=== PATIENT | male | born 1940 | race Caucasian/White ===

== ENCOUNTER 2017-07-11 14:55 | Emergency (ER) | payer MEDICARE, BC ==
[~2017-07-11] VITALS: Ht 182.9 cm; Wt 127.7 kg
[2017-07-11 15:29] VITALS: BP 135/74; PULSE 58; RESP 16; TEMP 97.6; O2SAT 97
[2017-07-11 15:50] VITALS: O2SAT 97
[2017-07-11] MEDS ORDERED: ACETAMINOPHEN 325 MG TAB PO ONE (16:00)
[2017-07-11] MEDS ORDERED: SODIUM CHLORIDE 0.9% FLUSH 10 ML FLUSH IVF PRN (16:00)
--- NOTE | 2017-07-11 16:33 | RADRPT ---
EXAM DATE/TIME: 07/11/2017 16:17 [place] COMPARISON: No previous studies available for comparison. INDICATIONS : Elevated blood pressure, slight headache, takes aspirin. RADIATION DOSE: 63.45 CTDIvol (mGy) MEDICAL HISTORY : Cardiovascular disease. Hypertension. SURGICAL HISTORY : None. ENCOUNTER: Initial ACUITY: 1 day PAIN SCALE: 2/10 LOCATION: Bilateral cranial TECHNIQUE: Multiple contiguous axial images were obtained of the head. Using automated exposure control and adj ustment of the mA and/or kV according to patient size, radiation dose was kept as low as reasonably a chievable to obtain optimal diagnostic quality images. DICOM format image data is available electro nically for review and comparison. FINDINGS: There is no evidence of intracranial average or acute infarct. No masses are seen. Minimal periventri cular white matter disease with small lacunar infarcts in the basal ganglia bilaterally. There are no fractures. CONCLUSION: No acute disease. Jordan Hartmann MD on July 11, 2017 at 16:30 Board Certified Radiologist. This report was verified electronically.
--- NOTE | 2017-07-11 17:08 | PD ---
HPI Chief Complaint: Hypertension Time Seen by Provider: 15:47 Travel History International Travel<30 days: No Contact w/Intl Traveler<30days: No Traveled to known affect area: No History of Present Illness HPI 77-year-old male arrives to the ER due to hypertension and headache. The patient has had a headache for about 2-3 days. It is very mild in his estimation located overlying the right eye. He does not typically have headaches. It started gradually upon waking a few days ago. He reports using a medication called Uloric for kidney disease due to elevated uric acid and was advised by his railway track plant operator to call if the blood pressure increases. Patient went to [facility] today and the blood pressure was 195/85. PFSH Past Medical History Hx Anticoagulant Therapy: Yes (asa 325mg) Cardiovascular Problems: Yes (htn on meds) Diminished Hearing: No Tetanus Vaccination: Unknown Influenza Vaccination: Yes Social History Alcohol Use: No Tobacco Use: No Substance Use: No Allergies-Medications (Allergen,Severity, Reaction): Coded Allergies: Penicillins (Verified Allergy, Intermediate, rash, 07/11/17) clindamycin (Verified Allergy, Intermediate, rash, 07/11/17) Reported Meds & Prescriptions Reported Meds & Active Scripts Active Reported Uloric (Febuxostat) 40 Mg Tab Vitamin D2 (Ergocalciferol) 2,000 Unit Tab 50,000 Units PO EVERY 14 DAYS Vitamin B-12 (Cyanocobalamin) 1,000 Mcg Tab 1,000 Mcg PO DAILY Aspirin 325 Mg Tab 325 Mg PO DAILY Bumetanide 1 Mg Tab 1 Mg PO DAILY Levothyroxine (Levothyroxine Sodium) 150 Mcg Tab 150 Mcg PO DAILY Metoprolol Tartrate 50 Mg Tab 50 Mg PO DAILY Allopurinol 100 Mg Tab 100 Mg PO DAILY Losartan (Losartan Potassium) 100 Mg Tab 100 Mg PO DAILY Simvastatin 40 Mg Tab 40 Mg PO HS Lexapro (Escitalopram Oxalate) 10 Mg Tab 10 Mg PO DAILY Review of Systems Except as stated in HPI: all other systems reviewed are Neg General / Constitutional: No: Fever Cardiovascular: No: Chest Pain or Discomfort Physical Exam Narrative GENERAL: 77-year-old male well-nourished well-developed no acute distress Vital Signs Date Time Temp Pulse Resp B/P (MAP) Pulse Ox O2 Delivery O2 Flow Rate FiO2 07/11/17 15:49 Room Air 07/11/17 15:29 97.6 58 16 135/74 (94) 97 SKIN: Warm and dry. HEAD: Atraumatic. Normocephalic. EYES: Pupils equal and round. No scleral icterus. No injection or drainage. ENT: No nasal bleeding or discharge. Mucous membranes pink and moist. NECK: Trachea midline. No JVD. Normal range of motion. Supple. CARDIOVASCULAR: Regular rate and rhythm. RESPIRATORY: No accessory muscle use. Clear to auscultation. Breath sounds equal bilaterally. GASTROINTESTINAL: Abdomen soft, non-tender, nondistended. Hepatic and splenic margins not palpable. MUSCULOSKELETAL: Extremities without clubbing, cyanosis, or edema. No obvious deformities. NEUROLOGICAL: Cranial nerves III through XII are normal. The speech memory mentation is normal. No focal motor deficit. Pupils equal and reactive to light. PSYCHIATRIC: Appropriate mood and affect; insight and judgment normal. Data Data Last Documented VS Vital Signs Date Time Temp Pulse Resp B/P (MAP) Pulse Ox O2 Delivery O2 Flow Rate FiO2 07/11/17 17:31 54 18 146/67 (93) 98 Room Air 07/11/17 15:29 97.6 Orders Orders Complete Blood Count With Diff (07/11/17 16:00) Basic Metabolic Panel (Bmp) (07/11/17 16:00) Ct Brain W/O Iv Contrast(Rout) (07/11/17 16:00) Ecg Monitoring (07/11/17 16:00) Iv Access Insert/Monitor (07/11/17 16:00) Oximetry (07/11/17 16:00) Sodium Chloride 0.9% Flush (Ns Flush) (07/11/17 16:00) Acetaminophen (Tylenol) (07/11/17 16:00) Hepatic Functional Panel (07/11/17 17:08) Labs Laboratory Tests Test 07/11/17 16:46 White Blood Count 5.7 TH/MM3 Red Blood Count 4.26 MIL/MM3 Hemoglobin 13.7 GM/DL Hematocrit 40.4 % Mean Corpuscular Volume 95.0 FL Mean Corpuscular Hemoglobin 32.2 PG Mean Corpuscular Hemoglobin Concent 33.9 % Red Cell Distribution Width 12.6 % Platelet Count 174 TH/MM3 Mean Platelet Volume 7.9 FL Neutrophils (%) (Auto) 64.4 % Lymphocytes (%) (Auto) 17.5 % Monocytes (%) (Auto) 13.2 % Eosinophils (%) (Auto) 4.0 % Basophils (%) (Auto) 0.9 % Neutrophils # (Auto) 3.6 TH/MM3 Lymphocytes # (Auto) 1.0 TH/MM3 Monocytes # (Auto) 0.8 TH/MM3 Eosinophils # (Auto) 0.2 TH/MM3 Basophils # (Auto) 0.1 TH/MM3 CBC Comment DIFF FINAL Differential Comment Blood Urea Nitrogen 32 MG/DL Creatinine 1.70 MG/DL Random Glucose 91 MG/DL Calcium Level 9.2 MG/DL Sodium Level 141 MEQ/L Potassium Level 4.0 MEQ/L Chloride Level 108 MEQ/L Carbon Dioxide Level 25.5 MEQ/L Anion Gap 8 MEQ/L Estimat Glomerular Filtration Rate 39 ML/MIN Total Bilirubin 0.4 MG/DL Direct Bilirubin 0.1 MG/DL Indirect Bilirubin 0.3 MG/DL Aspartate Amino Transf (AST/SGOT) 19 U/L Alanine Aminotransferase (ALT/SGPT) 29 U/L Alkaline Phosphatase 58 U/L Total Protein 7.2 GM/DL Albumin 3.2 GM/DL MDM Medical Decision Making Medical Screen Exam Complete: Yes Emergency Medical Condition: Yes Differential Diagnosis Medication side effect, renal failure, liver disease Narrative Course CBC & BMP Diagram 07/11/17 16:46 Calcium Level 9.[address]: No acute finding Discussed with Dr Ball, pt's railway track plant operator, who reports creatinine is the patient's baseline that he can continue with the Uloric. Results discussed with patient as well as conversation with the railway track plant operator. Patient agreeable with workup and disposition. Diagnosis Primary Impression: Cephalalgia Qualified Codes: R51 - Headache Additional Impression: Hypertension Qualified Codes: I10 - Essential (primary) hypertension Referrals: Photocopier Technician as needed Med/Other Pt SpecificInfo: No Change to Meds Disposition: 01 DISCHARGE HOME Condition: Stable Dusty Manuel MD Jul 11, 2017 17:07
[2017-07-11 17:11] LABS: CALCIUM 9.2 MG/DL (8.5-10.1)
[2017-07-11 17:12] LABS: BICARBONATE 25.5 MEQ/L (21.0-32.0)
[2017-07-11 17:15] LABS: CREATININE 1.7 MG/DL (0.60-1.30)
[2017-07-11 17:16] LABS: AUTOMATED NEUTROPHIL # 3.6 TH/MM3 (1.8-7.7); BASOPHIL # 0.1 TH/MM3 (0-0.2); BASOPHIL % 0.9 % (0.0-2.0); EOSINOPHIL # 0.2 TH/MM3 (0-0.4); HEMATOCRIT 40.4 % (39.0-51.0); HEMOGLOBIN 13.7 GM/DL (13.0-17.0); LYMPH % 17.5 % (9.0-44.0); MEAN CORPUSCULAR HEMOGLOBIN 32.2 PG (27.0-34.0); MEAN CORPUSCULAR HGB CONC 33.9 % (32.0-36.0); MEAN PLATELET VOLUME 7.9 FL (7.0-11.0); MONO % 13.2 % (0.0-8.0); MONOCYTE # 0.8 TH/MM3 (0-0.9); NEUT % 64.4 % (16.0-70.0); PLATELET COUNT 174 TH/MM3 (150-450); RED BLOOD COUNT 4.26 MIL/MM3 (4.50-5.90); RED CELL DISTRIBUTION WIDTH 12.6 % (11.6-17.2); WHITE BLOOD COUNT 5.7 TH/MM3 (4.0-11.0)
[2017-07-11 17:31] VITALS: BP 146/67; PULSE 54; RESP 18; O2SAT 98
[2017-07-11 17:40] LABS: ALBUMIN 3.2 GM/DL (3.4-5.0)
[2017-07-11 17:43] LABS: DIRECT BILIRUBIN ADULT 0.1 MG/DL (0.0-0.2)
[2017-07-11] MEDS ORDERED: SIMV40TA PO (17:44)
[2017-07-11] MEDS ORDERED: VITA10002 PO (17:44)
[2017-07-11] MEDS ORDERED: BUME1TAB PO (17:44)
[2017-07-11] MEDS ORDERED: ALLO100T PO (17:44)
[2017-07-11] MEDS ORDERED: METO50TA PO (17:44)
[2017-07-11] MEDS ORDERED: ASPI-183 PO (17:44)
[2017-07-11] MEDS ORDERED: ULOR40TA (17:44)
[2017-07-11] MEDS ORDERED: LEXA10TA PO (17:44)
[2017-07-11] MEDS ORDERED: ERGO2000 PO (17:44)
[2017-07-11] MEDS ORDERED: LEVO150T7 PO (17:44)
[2017-07-11] MEDS ORDERED: LOSA100T PO (17:44)
[2017-07-11 17:45] LABS: INDIRECT BILIRUBIN 0.3 MG/DL (0.0-0.8); TOTAL BILIRUBIN ADULT 0.4 MG/DL (0.2-1.0); TOTAL PROTEIN 7.2 GM/DL (6.4-8.2)
[2017-07-11 18:45] VITALS: BP 138/72; PULSE 52; RESP 18; O2SAT 98
== END 2017-07-11 19:05 | disposition home or self-care (01) ==
LOC: PHED 14:55
DX: R51 Headache (principal); I10 Essential (primary) hypertension; Z88.0 Allergy status to penicillin; Z88.8 Allergy status to other drugs, medicaments and biological substances; Z79.82 Long term (current) use of aspirin; Z79.899 Other long term (current) drug therapy
CPT/HCPCS: 70450; 80048; 80076; 85025; 99284